=== PATIENT | female | born 1995 | race Caucasian/White ===

== ENCOUNTER 2020-01-03 17:35 | Emergency (ER) | payer OTHER ==
[~2020-01-03] VITALS: Ht 170.2 cm; Wt 58.1 kg
--- NOTE | 2020-01-03 17:41 | NUR ---
Dr. Gibbs at bedside for MSE
[2020-01-03] MEDS ORDERED: DIPH25CA83 PO (17:44)
[2020-01-03] MEDS ORDERED: SULF1TAB48 PO (17:44)
--- NOTE | 2020-01-03 17:53 | NUR ---
Patient discharged to home in stable condition. Written and verbal after care instructions given. Patient verbalizes understanding of instructions. Stressed follow up or return to ER for worsening s/s. Patient ambulating with steady gait. NAD noted
[2020-01-03 17:56] VITALS: BP 122/71
== END 2020-01-03 17:53 | disposition home or self-care (01) ==
LOC: ER 17:38
DX: L03.116 Cellulitis of left lower limb (principal); T63.441A Toxic effect of venom of bees, accidental (unintentional), initial encounter; Y92.89 Other specified places as the place of occurrence of the external cause
CPT/HCPCS: A4663

== ENCOUNTER 2024-06-05 14:52 | Emergency (ER) | payer BC, OTHER ==
[~2024-06-05] VITALS: Ht 203.2 cm; Wt 59.0 kg
[~2024-06-05 14:52] MED LIST: DIPH25CA83 PO; SULF1TAB48 PO
[2024-06-05 15:03] VITALS: O2SAT 100
[2024-06-05] MEDS ORDERED: BUDE10.22 INH (18:47)
[2024-06-06] MEDS ORDERED: FLUT1BLS12 IH (17:08)
== END 2024-06-05 17:05 | disposition left against medical advice (07) ==
LOC: ER 14:52
DX: R07.89 Other chest pain (principal); Z53.21 Procedure and treatment not carried out due to patient leaving prior to being seen by health care provider
CPT/HCPCS: A4606; A4663

== ENCOUNTER 2024-06-05 17:41 | Emergency (ER) | payer BC ==
[~2024-06-05] VITALS: Ht 170.2 cm; Wt 54.4 kg
[2024-06-05 18:05] VITALS: O2SAT 100
[2024-06-05] MEDS ORDERED: BUDE10.22 INH (18:47)
[2024-06-06] MEDS ORDERED: FLUT1BLS12 IH (17:08)
== END 2024-06-05 18:54 | disposition home or self-care (01) ==
LOC: ER 17:42
DX: T52.8X1A Toxic effect of other organic solvents, accidental (unintentional), initial encounter (principal); Z79.51 Long term (current) use of inhaled steroids; Y92.89 Other specified places as the place of occurrence of the external cause
CPT/HCPCS: A4606; A4663

== ENCOUNTER 2024-11-29 13:41 | Emergency (ER) | payer BC ==
[~2024-11-29] VITALS: Ht 170.2 cm; Wt 59.0 kg
[~2024-11-29 13:41] MED LIST changes: +BUDE10.22 INH; +FLUT1BLS12 IH
[2024-11-29] MEDS ORDERED: diphenhydrAMINE 50 MG/1 ML VIAL ONE (14:49)
[2024-11-29] MEDS ORDERED: HALOPERIDOL LACTATE 5 MG/1 ML VIAL ONE (14:49)
[2024-11-29] MEDS ORDERED: LORAZEPAM 2 MG/1 ML VIAL ONE (14:50)
[2024-11-29] MEDS: HALOPERIDOL LACTATE 5 MG/1 ML VIAL IM ONE (14:59)
[2024-11-29] MEDS: LORAZEPAM 2 MG/1 ML VIAL IM ONE (14:59)
[2024-11-29] MEDS: diphenhydrAMINE 50 MG/1 ML VIAL IM ONE (14:59)
[2024-11-29 15:45] LABS: *BILIRUBIN,URIN NEGATIVE (NEGATIVE); *BLOOD, URINE 1+ (NEGATIVE); *CLARITY,URINE CLEAR (CLEAR); *COLOR,URINE YELLOW (YELLOW); *KETONES,URINE NEGATIVE (NEGATIVE); *PROTEIN,URINE NEGATIVE (NEGATIVE); *UROBILINOGEN,URINE 0.2 E.U./dl (NORMAL); LEUKOCYTE ESTERASE ,URINE NEGATIVE (NEGATIVE); NITRITE, URINE NEGATIVE (NEGATIVE); PH,URINE 6.5 (5.0-8.0); UGLUCOSE NEGATIVE (NEGATIVE)
[2024-11-29 15:53] LABS: BACTERIA,URINE FEW /HPF (NONE SEEN); SQUAMOUS EPITHELIAL CELL,UR FEW /HPF (NONE SEEN); WBC,URINE 0-3 /HPF (0-3)
[2024-11-29 15:54] LABS: *AMPHETAMINE, URINE NEGATIVE (NEGATIVE); *BARBITURATE, URINE NEGATIVE (NEGATIVE); *BENZODIAZEPINE, URINE POSITIVE (NEGATIVE); *CANNABINOID, URINE NEGATIVE (NEGATIVE); *COCCAINE, URINE NEGATIVE (NEGATIVE); *OPIATE, URINE NEGATIVE (NEGATIVE); *PHENCYCLIDINE SCREEN,URINE NEGATIVE (NEGATIVE); FENTANYL, URINE NEGATIVE (NEGATIVE)
[2024-11-29 16:28] LABS: BASOPHILS # (AUTO) 0.1 K/UL (0.0-0.2); BASOPHILS % (AUTO) 1.3 % (0.0-2.0); EOSINOPHILS % (AUTO) 0.5 % (0.0-7.0); HEMATOCRIT 36.7 % (31.2-41.9); HEMOGLOBIN 12.2 g/dL (10.9-14.3); LYMPHOCYTES # (AUTO) 1.7 K/uL (0.8-4.8); MEAN CORPUSCULAR HEMOGLOBIN 30.1 uug (24.7-32.8); MEAN CORPUSCULAR HGB CONC 33 g/dL (32.3-35.6); MEAN CORPUSCULAR VOLUME 90.6 fL (75.5-95.3); MONOCYTES # (AUTO) 0.6 K/uL (0.1-1.30); MONOCYTES % (AUTO) 8.4 % (0.0-11.0); NEUTROPHILS # (AUTO) 4.3 K/uL (1.8-8.9); NEUTROPHILS % (AUTO) 64.8 % (38.5-71.5); PLATELET COUNT (AUTO) 226 K/uL (179-408); RED BLOOD CELL COUNT(AUTO) 4.05 MIL/uL (3.63-4.92); RED CELL DISTRIBUTION WIDTH 13.2 % (12.3-17.7); WHITE BLOOD COUNT (AUTO) 6.7 K/uL (3.8-11.8)
[2024-11-29 16:36] LABS: DIFFERENTIAL COMMENT 1
[2024-11-29 16:40] LABS: CALCIUM 9.5 mg/dL (8.5-10.1); CARBON DIOXIDE 25 mmol/L (21-32); CHLORIDE 105 mmol/L (98-107); CREATININE 0.6 mg/dL (0.6-1.3); GLUCOSE 86 mg/dL (74-106); POTASSIUM 3.6 mmol/L (3.5-5.1); SODIUM SERUM 140 mmol/L (136-145); UREA NITROGEN, BLOOD 13 mg/dL (7-18)
[2024-11-29 16:43] LABS: ETHANOL < 3 MG/DL (0-10)
[2024-11-29 16:45] LABS: ALANINE AMINOTRANSFERASE 15 U/L (14-59); ALBUMIN 3.9 g/dL (3.4-5.0); ALKALINE PHOSPHATASE 61 U/L (50-136); ASPARTATE AMINOTRANSFERASE 9 U/L (15-37); BILIRUBIN,DIRECT 0.1 mg/dL (0.0-0.2); BILIRUBIN,TOTAL 0.5 mg/dL (0.2-1.0); TOTAL PROTEIN, SERUM 7.3 g/dL (6.4-8.2)
[2024-11-29 16:47] LABS: ACETAMINOPHEN < 2.0 ug/mL (10-30)
[2024-11-29] MEDS ORDERED: LORA-259 PO (23:10)
[2024-11-29] MEDS ORDERED: LORAZEPAM 1 MG TABLET ONE (23:16)
[2024-11-29] MEDS: LORAZEPAM 0.5 MG TABLET PO ONE (23:20)
[2024-11-29 23:23] VITALS: BP 112/86; TEMP 98.7; O2SAT 98
== END 2024-11-29 23:23 | disposition home or self-care (01) ==
LOC: ER 13:41
DX: F30.9 Manic episode, unspecified (principal); R07.9 Chest pain, unspecified; R10.2 Pelvic and perineal pain; R51.9 Headache, unspecified; Z79.51 Long term (current) use of inhaled steroids; Z79.899 Other long term (current) drug therapy; Z20.822 Contact with and (suspected) exposure to COVID-19; Z60.2 Problems related to living alone
CPT/HCPCS: 80076; 80048; 81001; 85025; 87426; 84484; 84702; 36415; 71045; 70450; 93005; 99285; 96372 ×2; 80299; 80320; 80307; J1200; J1630; J2060; A4606; A4663; G0480